=== PATIENT | female | born 1955 | race Caucasian/White ===

== ENCOUNTER 2023-11-26 21:55 | Inpatient (IN) | payer MEDICARE, OTHER ==
[~2023-11-26] VITALS: Ht 152.4 cm; Wt 36.3 kg
[~2023-11-26 21:55] MED LIST: ATOR10TA PO; HYDR-3974 PO; LISI10TA PO; METF-441 PO; METO25TA20 PO
[2023-11-26] MEDS: IV NS 0.9% 1,000 ML BAG IV ONE (22:00)
[2023-11-26] MEDS ORDERED: ACETAMINOPHEN 650 MG/SUPP.RECT RC ONE (22:07)
[2023-11-26 22:17] LABS: BASOPHILS # (AUTO) 0.1 K/uL (0.0-0.2); BASOPHILS % (AUTO) 0.5 % (0.0-2.0); EOSINOPHILS % (AUTO) 0.2 % (0.0-6.0); HEMATOCRIT 42 % (33-45); HEMOGLOBIN 13.8 g/dL (11.5-14.8); LYMPHOCYTES # (AUTO) 1.3 K/uL (0.8-4.8); LYMPHOCYTES % (AUTO) 8.8 % (20.0-44.0); MEAN CORPUSCULAR HEMOGLOBIN 32 PG (26.0-33.0); MEAN CORPUSCULAR HGB CONC 33 g/dl (31.0-36.0); MEAN CORPUSCULAR VOLUME 97 fL (82-100); MONOCYTES # (AUTO) 0.8 K/uL (0.1-1.30); NEUTROPHILS % (AUTO) 85.5 % (43.0-81.0); PLATELET COUNT (AUTO) 352 K/uL (150-450); RED BLOOD CELL COUNT(AUTO) 4.37 MIL/uL (4.0-5.2); RED CELL DISTRIBUTION WIDTH 16.3 % (11.5-15.0); WHITE BLOOD COUNT (AUTO) 15.2 K/uL (4.3-11.0)
[2023-11-26 22:24] LABS: CARBON DIOXIDE 26 mmol/L (21-32); CHLORIDE 99 mmol/L (98-107); GLUCOSE 268 mg/dL (74-106); POTASSIUM 4.2 mmol/L (3.5-5.1); SODIUM SERUM 142 mmol/L (136-145); UREA NITROGEN, BLOOD 30 mg/dL (7-18)
[2023-11-26 22:29] LABS: ALBUMIN 2.8 g/dL (3.4-5.0); BILIRUBIN,DIRECT 0.1 mg/dL (0.0-0.2); BILIRUBIN,TOTAL 0.3 mg/dL (0.2-1.0); CALCIUM, SERUM 10.6 mg/dL (8.5-10.1); TOTAL PROTEIN, SERUM 7.3 g/dL (6.4-8.2)
[2023-11-26] MEDS: ACETAMINOPHEN 650 MG/SUPP.RECT RC ONE (22:30)
[2023-11-26 22:31] LABS: INR 1.07 (0.91-1.10); PARTIAL THROMBOPLASTIN TIME 24.9 SEC (24.3-34.3); PROTHROMBIN TIME 11.3 SECS (9.2-11.1)
[2023-11-26 22:36] LABS: LACTIC ACID 9.1 mmol/L (0.4-2.0)
[2023-11-26 22:42] LABS: ABG OXYGEN SATURATION 98.1 % (92.0-98.5); ABG PCO2 37.4 mmHg (35.0-45.0); ABG PH 7.363 (7.350-7.450); ABG PO2 124.8 mmHg (75.0-100.0); COHb 0.3 % (0.5-1.5); MetHb 0.3 % (0.0-1.5); O2Hb 97.5 % (94.0-97.0); SITE, ABG Left Radial; VENT MODE, BG BIPAP 20/8 rate 22
[2023-11-26 22:58] LABS: ALANINE AMINOTRANSFERASE 10 U/L (12-78); ALKALINE PHOSPHATASE 68 U/L (46-116); ASPARTATE AMINOTRANSFERASE 16 U/L (15-37)
[2023-11-26] MEDS ORDERED: PIPERACI/TAZO 3.375GM/D5W 50ML PB IV ONE (23:36)
[2023-11-26] MEDS: PIPERACILLIN /TAZOBACTAM 3.375 G in IV D5W 50 ML IV ONE (23:42)
[2023-11-27] VITALS (30 sets, daily range): BP systolic 93–137; BP diastolic 55–81; TEMP 97.7–98.9; O2SAT 86–100
[2023-11-27] MEDS ORDERED: MAG HYDROX/AL HYDROX/SIMETH 30 ML UDC PO PRN
[2023-11-27] MEDS ORDERED: MAGNESIUM HYDROXIDE 30 ML UDC PO PRN
[2023-11-27] MEDS ORDERED: ZOLPIDEM TARTRATE 5 MG TABLET PO PRN
[2023-11-27] MEDS ORDERED: ONDANSETRON HCL/PF 4 MG/2 ML VIAL IVP PRN
[2023-11-27] MEDS ORDERED: Z GUARD REMEDY 4 OZ OINT TP PRN
[2023-11-27] MEDS: IV NS 0.9% 1,000 ML IV PRN (01:17)
[2023-11-27] MEDS: ENOXAPARIN SODIUM 40 MG/0.4 ML DISP.SYRIN SQ SCH (01:26)
[2023-11-27 04:45] LABS: BASOPHILS % (AUTO) 0.2 % (0.0-2.0); HEMATOCRIT 39 % (33-45); HEMOGLOBIN 12.6 g/dL (11.5-14.8); LYMPHOCYTES # (AUTO) 0.6 K/uL (0.8-4.8); LYMPHOCYTES % (AUTO) 9.6 % (20.0-44.0); MEAN CORPUSCULAR HEMOGLOBIN 32 PG (26.0-33.0); MEAN CORPUSCULAR HGB CONC 33 g/dl (31.0-36.0); MEAN CORPUSCULAR VOLUME 97 fL (82-100); MONOCYTES # (AUTO) 0.5 K/uL (0.1-1.30); MONOCYTES % (AUTO) 8.1 % (2.0-12.0); NEUTROPHILS # (AUTO) 4.9 K/uL (1.8-8.9); NEUTROPHILS % (AUTO) 82.1 % (43.0-81.0); PLATELET COUNT (AUTO) 193 K/uL (150-450); RED CELL DISTRIBUTION WIDTH 16.2 % (11.5-15.0)
[2023-11-27 05:14] LABS: ALBUMIN 2.1 g/dL (3.4-5.0); BILIRUBIN,DIRECT 0.1 mg/dL (0.0-0.2); BILIRUBIN,TOTAL 0.3 mg/dL (0.2-1.0); CALCIUM, SERUM 9.4 mg/dL (8.5-10.1); CREATININE 0.7 mg/dL (0.6-1.3); MAGNESIUM 1.3 mg/dL (1.8-2.4); PHOSPHORUS 3.2 mg/dL (2.5-4.9); POTASSIUM 3.5 mmol/L (3.5-5.1); TOTAL PROTEIN, SERUM 5.9 g/dL (6.4-8.2)
[2023-11-27 05:18] LABS: LACTIC ACID 5.7 mmol/L (0.4-2.0); THYROID STIMULATING HORMONE 0.37 uIU/mL (0.358-3.74)
[2023-11-27] MEDS: PANTOPRAZOLE 40 MG VIAL IV SCH (08:23)
[2023-11-27] MEDS: Magnesium 1GM/D5W 100ML PREMIX 100 ML IV SCH (08:23)
[2023-11-27] MEDS: PIPERACILLIN /TAZOBACTAM 3.375 G in IV D5W 100 ML IV SCH (08:23)
[2023-11-27] MEDS ORDERED: VALB80CA PO (08:24)
[2023-11-27] MEDS ORDERED: ACET-2030 PO (08:24)
[2023-11-27] MEDS ORDERED: MAGN400T30 PO (08:24)
[2023-11-27] MEDS ORDERED: DIVA125C5 PO (08:24)
[2023-11-27] MEDS ORDERED: METO25TA20 PO (08:24)
[2023-11-27] MEDS ORDERED: BUSP10TA35 PO (08:24)
[2023-11-27] MEDS ORDERED: LINA5TAB PO (08:24)
[2023-11-27] MEDS ORDERED: MAGN400O6 PO (08:24)
[2023-11-27] MEDS ORDERED: ACET-868 PO ×2 (08:24)
[2023-11-27] MEDS ORDERED: CYAN500T9 PO (08:24)
[2023-11-27] MEDS ORDERED: MULT-24 PO (08:24)
[2023-11-27] MEDS ORDERED: FAMO20TA80 PO (08:24)
[2023-11-27] MEDS ORDERED: OLAN2.5T3 PO (08:24)
[2023-11-27] MEDS ORDERED: LACT10SO58 PO (08:24)
[2023-11-27] MEDS ORDERED: METF850T PO (08:24)
[2023-11-27] MEDS ORDERED: ZINC454O5 TP (08:24)
[2023-11-27] MEDS ORDERED: TRAZ-182 PO (08:24)
[2023-11-27] MEDS ORDERED: NA P133E RC (08:24)
[2023-11-27] MEDS ORDERED: BISA10SU11 RC (08:24)
[2023-11-27] MEDS ORDERED: LORA-258 PO (08:24)
[2023-11-27] MEDS ORDERED: NA PHOS,M-B/NA PHOS,DI-BA 1 EA ENEMA RC PRN (11:00)
[2023-11-27] MEDS ORDERED: DEXTROSE 50%-WATER 50 ML DISP.SYRIN IV PRN (11:00)
[2023-11-27] MEDS ORDERED: ALBUTEROL FS 2.5 MG/3 ML VIAL.NEB NEB PRN (11:00)
[2023-11-27] MEDS ORDERED: ACETAMINOPHEN 325 MG TABLET PO PRN ×3 (11:00)
[2023-11-27] MEDS ORDERED: BISACODYL SUPP (10 MG) 10 MG/SUPP.RECT SUPP.RECT RC PRN (11:00)
[2023-11-27] MEDS ORDERED: IPRATROPIUM NEB FS 0.5 MG/2.5 ML AMPUL.NEB NEB PRN (11:00)
[2023-11-27] MEDS ORDERED: [UNRECOGNIZED DRUG - OTHER] XX SCH (11:00)
[2023-11-27] MEDS: BLOOD SUGAR DIAGNOSTIC 1 EACH STRIP IN SCH (11:42)
[2023-11-27] MEDS: PERMETHRIN 5% CRM 60 GM TUBE TP ONE (14:54)
[2023-11-27 16:09] LABS: APPEARANCE,URINE SLIGHTLY CLOUDY (CLEAR); BILIRUBIN,URINE NEGATIVE (NEGATIVE); BLOOD, URINE 3+ Ery/uL (NEGATIVE); COLOR,URINE YELLOW (YELLOW); KETONES,URINE 1+ mg/dL (NEGATIVE); LEUKOCYTE ESTERASE ,URINE NEGATIVE (NEGATIVE); NITRITE, URINE NEGATIVE (NEGATIVE); PH,URINE 5.5 (5.0-8.0); PROTEIN,URINE 1+ mg/dl (NEGATIVE); UGLUCOSE NEGATIVE (NEGATIVE); UROBILINOGEN,URINE 0.2 EU/dL (0.2)
[2023-11-27] MEDS: busPIRone 5 MG TABLET PO SCH (16:28)
[2023-11-27] MEDS: MAGNESIUM OXIDE 400 MG TABLET PO SCH (16:28)
[2023-11-27] MEDS: DIVALPROEX SODIUM 125 MG CAP.SPRINK PO SCH (16:28)
[2023-11-27] MEDS: LACTULOSE 10 G/15 ML UDC (PYXIS) PO SCH (16:28)
[2023-11-27 17:08] LABS: RBC,URINE 51-80 /HPF (0-2)
[2023-11-27 17:11] LABS: ADD URINE CULTURE NO; BACTERIA,URINE RARE /HPF (None Seen); HYALINE CASTS, URINE Few /LPF (None Seen); WBC,URINE 0-2 /HPF (0-3)
[2023-11-27 17:12] LABS: URIC ACID CRYSTALS,URINE Moderate /HPF (None Seen)
[2023-11-27] MEDS: INSULIN REGULAR, HUMAN 100 UNIT/ML 3 ML VIAL SQ PRN (17:21)
[2023-11-27] MEDS: METOPROLOL TARTRATE 25 MG TABLET PO SCH (21:00)
[2023-11-27] MEDS: ZINC OXIDE 56.7 GM TUBE TP SCH (21:17)
[2023-11-27] MEDS: OLANZAPINE 2.5 MG TABLET PO SCH (22:00)
[2023-11-28] VITALS (20 sets, daily range): BP systolic 100–153; BP diastolic 56–109; TEMP 97.7–100.5; O2SAT 89–99
[2023-11-28 05:29] LABS: CREATININE 0.5 mg/dL (0.6-1.3); MAGNESIUM 2.1 mg/dL (1.8-2.4); POTASSIUM 3.4 mmol/L (3.5-5.1)
[2023-11-28 05:32] LABS: BASOPHILS % (AUTO) 0.1 % (0.0-2.0); EOSINOPHILS % (AUTO) 0.1 % (0.0-6.0); HEMATOCRIT 35 % (33-45); HEMOGLOBIN 11.2 g/dL (11.5-14.8); LYMPHOCYTES # (AUTO) 1.3 K/uL (0.8-4.8); LYMPHOCYTES % (AUTO) 11.6 % (20.0-44.0); MEAN CORPUSCULAR HEMOGLOBIN 32 PG (26.0-33.0); MEAN CORPUSCULAR HGB CONC 33 g/dl (31.0-36.0); MEAN CORPUSCULAR VOLUME 99 fL (82-100); MONOCYTES # (AUTO) 0.6 K/uL (0.1-1.30); MONOCYTES % (AUTO) 5.6 % (2.0-12.0); NEUTROPHILS % (AUTO) 82.6 % (43.0-81.0); PLATELET COUNT (AUTO) 172 K/uL (150-450); RED CELL DISTRIBUTION WIDTH 16.6 % (11.5-15.0); WHITE BLOOD COUNT (AUTO) 10.9 K/uL (4.3-11.0)
[2023-11-28] MEDS: LINAGLIPTIN 5 MG TABLET PO SCH (08:11)
[2023-11-28] MEDS: MULTIVITAMINS,THERAGRAN 1 UDTAB TABLET PO SCH (08:11)
[2023-11-28] MEDS: CYANOCOBALAMIN 500 MCG TABLET PO SCH (08:11)
[2023-11-28] MEDS: POTASSIUM CL. PREMIX PERIPHER. 50 ML IV SCH (10:00)
[2023-11-28] MEDS: ACETAMINOPHEN 650 MG/SUPP.RECT RC PRN (10:40)
[2023-11-29] VITALS (13 sets, daily range): BP systolic 132–157; BP diastolic 77–96; TEMP 97.3–98.6; O2SAT 97–100
[2023-11-29] MEDS ORDERED: KETOROLAC TROMETHAMINE INJ 30 MG/ML VIAL ONE (01:55)
[2023-11-29] MEDS: KETOROLAC TROMETHAMINE 15 MG/ML VIAL IV PRN (01:58)
[2023-11-29] MEDS ORDERED: LORAZEPAM 4 MG/ML VIAL IV PRN (05:30)
[2023-11-29] MEDS: LORAZEPAM INJ 2 MG/ML VIAL IV PRN (06:00)
[2023-11-29 10:12] LABS: FOLIC ACID 3.8 ng/mL (>3.0)
[2023-11-29 11:09] LABS: BASOPHILS # (AUTO) 0.1 K/uL (0.0-0.2); BASOPHILS % (AUTO) 1.1 % (0.0-2.0); EOSINOPHILS % (AUTO) 0.4 % (0.0-6.0); HEMATOCRIT 32 % (33-45); HEMOGLOBIN 10.5 g/dL (11.5-14.8); LYMPHOCYTES # (AUTO) 1.1 K/uL (0.8-4.8); LYMPHOCYTES % (AUTO) 12.7 % (20.0-44.0); MEAN CORPUSCULAR HEMOGLOBIN 32 PG (26.0-33.0); MEAN CORPUSCULAR HGB CONC 33 g/dl (31.0-36.0); MEAN CORPUSCULAR VOLUME 96 fL (82-100); MONOCYTES # (AUTO) 0.5 K/uL (0.1-1.30); MONOCYTES % (AUTO) 5.7 % (2.0-12.0); NEUTROPHILS # (AUTO) 7.1 K/uL (1.8-8.9); NEUTROPHILS % (AUTO) 80.1 % (43.0-81.0); PLATELET COUNT (AUTO) 198 K/uL (150-450); RED BLOOD CELL COUNT(AUTO) 3.28 MIL/uL (4.0-5.2); RED CELL DISTRIBUTION WIDTH 16.2 % (11.5-15.0); WHITE BLOOD COUNT (AUTO) 8.9 K/uL (4.3-11.0)
[2023-11-29] MEDS: VALPROATE 250 MG in IV D5W 100 ML IV SCH (16:34)
[2023-11-30] VITALS: BP_SYST 133; BP_SYST 153; BP_DIAS 74; BP_DIAS 85; TEMP 97.3; TEMP 98.4; O2SAT 100
[2023-11-30 04:00] VITALS: BP 153/88; TEMP 98.9; O2SAT 98
[2023-11-30 08:00] VITALS: BP 155/116; TEMP 99.7; O2SAT 99
[2023-11-30 08:08] LABS: CALCIUM, SERUM 8.6 mg/dL (8.5-10.1); CREATININE 0.4 mg/dL (0.6-1.3); MAGNESIUM 1.5 mg/dL (1.8-2.4); PHOSPHORUS 2.4 mg/dL (2.5-4.9); POTASSIUM 3.2 mmol/L (3.5-5.1)
[2023-11-30] MEDS: hydrALAZINE HCL IV 20 MG VIAL IV PRN (08:34)
[2023-11-30] MEDS: POTASSIUM CL. PREMIX PERIPHER. 50 ML IV SCH (09:49)
[2023-11-30] MEDS: Sodium Phosphate 15 MMOL in IV NS 0.9% 245 ML IV ONE (15:55)
[2023-11-30 16:00] VITALS: BP 132/76; TEMP 99.7; O2SAT 99
[2023-11-30 16:03] LABS: BASOPHILS % (AUTO) 0.3 % (0.0-2.0); EOSINOPHILS % (AUTO) 0.7 % (0.0-6.0); HEMATOCRIT 32 % (33-45); HEMOGLOBIN 10.6 g/dL (11.5-14.8); LYMPHOCYTES # (AUTO) 1.5 K/uL (0.8-4.8); LYMPHOCYTES % (AUTO) 21.5 % (20.0-44.0); MEAN CORPUSCULAR HEMOGLOBIN 32 PG (26.0-33.0); MEAN CORPUSCULAR HGB CONC 34 g/dl (31.0-36.0); MEAN CORPUSCULAR VOLUME 96 fL (82-100); MONOCYTES # (AUTO) 0.6 K/uL (0.1-1.30); MONOCYTES % (AUTO) 9.1 % (2.0-12.0); NEUTROPHILS # (AUTO) 4.7 K/uL (1.8-8.9); NEUTROPHILS % (AUTO) 68.4 % (43.0-81.0); PLATELET COUNT (AUTO) 191 K/uL (150-450); RED BLOOD CELL COUNT(AUTO) 3.32 MIL/uL (4.0-5.2); RED CELL DISTRIBUTION WIDTH 15.8 % (11.5-15.0); WHITE BLOOD COUNT (AUTO) 6.9 K/uL (4.3-11.0)
[2023-11-30 19:31] VITALS: O2SAT 99
[2023-12-01] VITALS: BP 133/85; TEMP 97.3; O2SAT 99
[2023-12-01] MEDS: IV D5/0.45 NACL 1,000 ML IV ONE (00:42)
[2023-12-01 07:27] LABS: BASOPHILS % (AUTO) 0.4 % (0.0-2.0); EOSINOPHILS # (AUTO) 0.2 K/uL (0.0-0.7); EOSINOPHILS % (AUTO) 2.4 % (0.0-6.0); HEMATOCRIT 33 % (33-45); HEMOGLOBIN 11.1 g/dL (11.5-14.8); LYMPHOCYTES % (AUTO) 15.8 % (20.0-44.0); MEAN CORPUSCULAR HEMOGLOBIN 32 PG (26.0-33.0); MEAN CORPUSCULAR HGB CONC 33 g/dl (31.0-36.0); MEAN CORPUSCULAR VOLUME 96 fL (82-100); MONOCYTES # (AUTO) 0.5 K/uL (0.1-1.30); NEUTROPHILS # (AUTO) 4.6 K/uL (1.8-8.9); NEUTROPHILS % (AUTO) 73.4 % (43.0-81.0); PLATELET COUNT (AUTO) 213 K/uL (150-450); RED BLOOD CELL COUNT(AUTO) 3.45 MIL/uL (4.0-5.2); RED CELL DISTRIBUTION WIDTH 15.8 % (11.5-15.0); WHITE BLOOD COUNT (AUTO) 6.3 K/uL (4.3-11.0)
[2023-12-01 07:47] LABS: CALCIUM, SERUM 8.7 mg/dL (8.5-10.1); CREATININE 0.4 mg/dL (0.6-1.3); MAGNESIUM 1.2 mg/dL (1.8-2.4); PHOSPHORUS 2.8 mg/dL (2.5-4.9); POTASSIUM 2.9 mmol/L (3.5-5.1)
[2023-12-01 08:00] VITALS: BP 153/90; TEMP 98.1; O2SAT 98
[2023-12-01 10:15] LABS: EOSINOPHILS % (MANUAL) 1 % (0-4); LYMPHOCYTES % (MANUAL) 14 % (16-48); MONOCYTES % (MANUAL) 11 % (0-11.0); NEUTROPHILS % (MANUAL) 74 (42-76)
[2023-12-01 10:18] LABS: OVALOCYTES 1+; PLATELET ESTIMATE ADEQUATE
[2023-12-01] MEDS: POTASSIUM CL. PREMIX PERIPHER. 50 ML IV SCH (10:56)
[2023-12-01] MEDS: Magnesium 1GM/D5W 100ML PREMIX 100 ML IV SCH (11:44)
[2023-12-01 16:00] VITALS: BP 172/98; TEMP 97.9; O2SAT 99
[2023-12-01 16:16] VITALS: BP 167/96
== END 2023-12-01 17:15 | disposition hospice, home (50) | DRG 871 ==
LOC: ER 22:15 → ICU 22:59 → TELE1 11-28 13:14 → MEDSG1 11-30 08:27
PROVIDERS: ADMIT Nurse Practitioner Family; ATTEND Student in an Organized Health Care Education/Training Program
PROC: 5A09357 Assistance with Respiratory Ventilation, Less than 24 Consecutive Hours, Continuous Positive Airway Pressure (ICD-10-PCS; principal; 2023-11-26)
PROC: 5A09357 Assistance with Respiratory Ventilation, Less than 24 Consecutive Hours, Continuous Positive Airway Pressure (ICD-10-PCS; 2023-11-27)
DX: A41.9 Sepsis, unspecified organism (principal); E43 Unspecified severe protein-calorie malnutrition; G93.41 Metabolic encephalopathy; J15.9 Unspecified bacterial pneumonia; J96.01 Acute respiratory failure with hypoxia; J69.0 Pneumonitis due to inhalation of food and vomit; J15.69 Pneumonia due to other Gram-negative bacteria; E87.20 Acidosis, unspecified; R64 Cachexia; N17.9 Acute kidney failure, unspecified; F02.82 Dementia in other diseases classified elsewhere, unspecified severity, with psychotic disturbance; Z68.1 Body mass index [BMI] 19.9 or less, adult; E78.5 Hyperlipidemia, unspecified; E83.52 Hypercalcemia; E86.0 Dehydration; E87.6 Hypokalemia; E88.09 Other disorders of plasma-protein metabolism, not elsewhere classified; F20.9 Schizophrenia, unspecified; J45.909 Unspecified asthma, uncomplicated; E80.6 Other disorders of bilirubin metabolism; Z51.5 Encounter for palliative care; G30.9 Alzheimer's disease, unspecified; I10 Essential (primary) hypertension; Z20.822 Contact with and (suspected) exposure to COVID-19; R21 Rash and other nonspecific skin eruption; E11.9 Type 2 diabetes mellitus without complications; R13.10 Dysphagia, unspecified
CPT/HCPCS: 36415; 36600; 70450-TC; 71045-TC; 71250-TC; 80048-TC; 80076-TC; 81001; 82607-TC; 82803-TC; 82962-TC; 83605-TC; 83735-TC; 83921; 84100-TC; 84443-TC; 84484-TC; 85025-TC; 85730-TC; 87040-TC; 87081-TC; 87086-TC; 92526; 92611-TC; 94760-TC; 94762-TC; 94799-TC; 99082-TC; A4223; A9563; G0378; J0360; J1650; J1815; J1885; J2060; J2470; J2543; J3475; J3480; J3490; J7030; J7050; J7060

== ENCOUNTER 2024-02-14 16:33 | Inpatient (IN) | payer MEDICARE, OTHER ==
[~2024-02-14] VITALS: Ht 152.4 cm; Wt 35.4 kg
[~2024-02-14 16:33] MED LIST changes: +ACET-2030 PO; +ACET-868 PO; -ATOR10TA PO; +BISA10SU11 RC; +BUSP10TA35 PO; +CYAN500T9 PO; +DIVA125C5 PO; +FAMO20TA80 PO; -HYDR-3974 PO; +IVER3TAB2 PO; +LACT10SO58 PO; +LINA5TAB PO; -LISI10TA PO; +LORA-258 PO; +MAGN400O6 PO; +MAGN400T30 PO; -METF-441 PO; +METF850T PO; +MULT-24 PO; +NA P133E RC; +OLAN2.5T3 PO; +TRAZ-182 PO; +VALB80CA PO; +ZINC454O5 TP
[2024-02-14] MEDS: IV NS 0.9% 1,000 ML BAG IV ONE (17:00)
[2024-02-14 17:07] LABS: BASOPHILS # (AUTO) 0.1 K/uL (0.0-0.2); BASOPHILS % (AUTO) 0.4 % (0.0-2.0); EOSINOPHILS % (AUTO) 0.2 % (0.0-6.0); HEMATOCRIT 42 % (33-45); HEMOGLOBIN 13.6 g/dL (11.5-14.8); LYMPHOCYTES # (AUTO) 1.8 K/uL (0.8-4.8); LYMPHOCYTES % (AUTO) 10.1 % (20.0-44.0); MEAN CORPUSCULAR HEMOGLOBIN 32 PG (26.0-33.0); MEAN CORPUSCULAR HGB CONC 32 g/dl (31.0-36.0); MEAN CORPUSCULAR VOLUME 101 fL (82-100); MONOCYTES # (AUTO) 0.9 K/uL (0.1-1.30); MONOCYTES % (AUTO) 5.1 % (2.0-12.0); NEUTROPHILS % (AUTO) 84.2 % (43.0-81.0); PLATELET COUNT (AUTO) 459 K/uL (150-450); RED BLOOD CELL COUNT(AUTO) 4.21 MIL/uL (4.0-5.2); RED CELL DISTRIBUTION WIDTH 15.9 % (11.5-15.0); WHITE BLOOD COUNT (AUTO) 17.9 K/uL (4.3-11.0)
[2024-02-14] MEDS ORDERED: ACETAMINOPHEN 650 MG/SUPP.RECT RC ONE (17:15)
[2024-02-14] MEDS: ACETAMINOPHEN 650 MG/SUPP.RECT RC ONE (17:17)
[2024-02-14 17:22] LABS: INR 1.07 (0.91-1.10)
[2024-02-14 17:25] LABS: ALANINE AMINOTRANSFERASE 44 U/L (12-78); ALBUMIN 2.9 g/dL (3.4-5.0); ALKALINE PHOSPHATASE 71 U/L (46-116); ASPARTATE AMINOTRANSFERASE 53 U/L (15-37); BILIRUBIN,TOTAL 0.3 mg/dL (0.2-1.0); CALCIUM, SERUM 11.3 mg/dL (8.5-10.1); CARBON DIOXIDE 31 mmol/L (21-32); CHLORIDE 123 mmol/L (98-107); CREATININE 1.1 mg/dL (0.6-1.3); GLUCOSE 176 mg/dL (74-106); POTASSIUM 3.9 mmol/L (3.5-5.1); TOTAL PROTEIN, SERUM 7.9 g/dL (6.4-8.2); UREA NITROGEN, BLOOD 49 mg/dL (7-18)
[2024-02-14 17:27] LABS: SODIUM SERUM 162 mmol/L (136-145)
[2024-02-14 17:31] LABS: LACTIC ACID 2.9 mmol/L (0.4-2.0)
[2024-02-14] MEDS: PIPERACILLIN /TAZOBACTAM 3.375 G in IV D5W 50 ML IV ONE (18:00)
[2024-02-14] MEDS ORDERED: ACET650S11 RC (18:10)
[2024-02-14] MEDS ORDERED: DEXT38GE12 PO (18:10)
[2024-02-14] MEDS ORDERED: MEGE400O5 PO (18:10)
[2024-02-14] MEDS ORDERED: CALC-101 PO (18:10)
[2024-02-14] MEDS ORDERED: FOLI0.4T6 PO (18:10)
[2024-02-14] MEDS ORDERED: GLUC1KIT IJ (18:10)
[2024-02-14 18:24] LABS: BAND % (MANUAL) 1 % (0.0-5.0); LYMPHOCYTES % (MANUAL) 15 % (16-48); MONOCYTES % (MANUAL) 7 % (0-11.0); NEUTROPHILS % (MANUAL) 77 (42-76); PLATELET ESTIMATE INCREASED
[2024-02-14 18:51] LABS: APPEARANCE,URINE Clear (CLEAR); BILIRUBIN,URINE SMALL (NEGATIVE); BLOOD, URINE Negative Ery/uL (NEGATIVE); COLOR,URINE YELLOW (YELLOW); KETONES,URINE Trace mg/dL (NEGATIVE); LEUKOCYTE ESTERASE ,URINE Negative (NEGATIVE); NITRITE, URINE Negative (NEGATIVE); PROTEIN,URINE 100 mg/dl (NEGATIVE); UGLUCOSE Negative (NEGATIVE); UROBILINOGEN,URINE 0.2 EU/dL (0.2)
[2024-02-14 19:37] LABS: ADD URINE CULTURE NO; BACTERIA,URINE Few /HPF (None Seen); SQUAMOUS EPITHELIAL CELL,UR Few /HPF (None Seen)
[2024-02-14] MEDS ORDERED: ONDANSETRON HCL/PF 4 MG/2 ML VIAL IVP PRN (20:00)
[2024-02-14] MEDS ORDERED: Z GUARD REMEDY 4 OZ OINT TP PRN (20:00)
[2024-02-14 20:25] VITALS: BP 139/86; TEMP 98.1; O2SAT 100
[2024-02-14 21:11] VITALS: O2SAT 96
[2024-02-14] MEDS: IV D5W 1,000 ML IV PRN (21:12)
[2024-02-15] VITALS: BP 125/58; TEMP 98.7; O2SAT 100
[2024-02-15] MEDS: PIPERACILLIN /TAZOBACTAM 3.375 G in IV D5W 100 ML IV SCH (02:13)
[2024-02-15] MEDS ORDERED: KETOROLAC TROMETHAMINE 15 MG/ML VIAL IV PRN (03:30)
[2024-02-15 04:00] VITALS: BP 145/75; TEMP 98.2; O2SAT 100
[2024-02-15] MEDS: ACETAMINOPHEN 650 MG/SUPP.RECT RC PRN (05:07)
[2024-02-15 06:25] LABS: BASOPHILS % (AUTO) 0.2 % (0.0-2.0); EOSINOPHILS % (AUTO) 0.2 % (0.0-6.0); HEMATOCRIT 36 % (33-45); HEMOGLOBIN 11.1 g/dL (11.5-14.8); LYMPHOCYTES # (AUTO) 1.8 K/uL (0.8-4.8); MEAN CORPUSCULAR HEMOGLOBIN 32 PG (26.0-33.0); MEAN CORPUSCULAR HGB CONC 31 g/dl (31.0-36.0); MEAN CORPUSCULAR VOLUME 102 fL (82-100); MONOCYTES # (AUTO) 0.9 K/uL (0.1-1.30); MONOCYTES % (AUTO) 5.4 % (2.0-12.0); NEUTROPHILS # (AUTO) 14.8 K/uL (1.8-8.9); NEUTROPHILS % (AUTO) 84.2 % (43.0-81.0); PLATELET COUNT (AUTO) 253 K/uL (150-450); RED CELL DISTRIBUTION WIDTH 15.8 % (11.5-15.0); WHITE BLOOD COUNT (AUTO) 17.6 K/uL (4.3-11.0)
[2024-02-15 06:54] LABS: ALBUMIN 2.1 g/dL (3.4-5.0); BILIRUBIN,DIRECT 0.1 mg/dL (0.0-0.2); BILIRUBIN,TOTAL 0.4 mg/dL (0.2-1.0); CALCIUM, SERUM 9.8 mg/dL (8.5-10.1); CREATININE 0.7 mg/dL (0.6-1.3); MAGNESIUM 1.8 mg/dL (1.8-2.4); PHOSPHORUS 2.1 mg/dL (2.5-4.9); TOTAL PROTEIN, SERUM 6.4 g/dL (6.4-8.2)
[2024-02-15 06:59] LABS: LACTIC ACID 1.6 mmol/L (0.4-2.0)
[2024-02-15 08:00] VITALS: BP 154/92; TEMP 97.8; O2SAT 100
[2024-02-15] MEDS: PANTOPRAZOLE 40 MG VIAL IV SCH (08:39)
[2024-02-15] MEDS: CEFEPIME 2 GM in IV D5W 100 ML IV SCH (10:10)
[2024-02-15] MEDS: ENOXAPARIN SODIUM 40 MG/0.4 ML DISP.SYRIN SQ SCH (10:47)
[2024-02-15] MEDS: VANCOMYCIN 750 MG in IV D5W 250 ML IV ONE (11:00)
[2024-02-15] MEDS: POTASSIUM CL. PREMIX PERIPHER. 50 ML IV SCH (11:55)
[2024-02-15 12:00] VITALS: BP 154/87; TEMP 97.5; O2SAT 100
[2024-02-15 14:53] LABS: HIV-1 p24 ANTIGEN NON REACTIVE (NONREACTIVE); HIV-1/2 ANTIBODY NON REACTIVE (NONREACTIVE)
[2024-02-15 16:00] VITALS: BP 147/89; TEMP 97.7; O2SAT 100
[2024-02-15] MEDS ORDERED: Sodium Phosphate 15 MMOL in IV NS 0.9% 245 ML IV SCH (16:30)
[2024-02-15] MEDS: Sodium Phosphate 15 MMOL in IV NS 0.9% 245 ML IV SCH (17:25)
[2024-02-15 20:00] VITALS: BP 141/92; TEMP 97.8; O2SAT 99
[2024-02-15] MEDS: VANCOMYCIN 500 MG in IV D5W 100ml IV SCH (23:02)
[2024-02-16] VITALS: BP 133/76; TEMP 98.3; O2SAT 98
[2024-02-16 04:00] VITALS: BP 162/59; TEMP 97.8; O2SAT 98
[2024-02-16 07:15] LABS: BASOPHILS % (AUTO) 0.3 % (0.0-2.0); EOSINOPHILS # (AUTO) 0.6 K/uL (0.0-0.7); EOSINOPHILS % (AUTO) 3.9 % (0.0-6.0); HEMATOCRIT 33 % (33-45); HEMOGLOBIN 10.4 g/dL (11.5-14.8); LYMPHOCYTES # (AUTO) 2.1 K/uL (0.8-4.8); LYMPHOCYTES % (AUTO) 13.4 % (20.0-44.0); MEAN CORPUSCULAR HEMOGLOBIN 32 PG (26.0-33.0); MEAN CORPUSCULAR HGB CONC 32 g/dl (31.0-36.0); MEAN CORPUSCULAR VOLUME 101 fL (82-100); MONOCYTES # (AUTO) 0.6 K/uL (0.1-1.30); MONOCYTES % (AUTO) 3.6 % (2.0-12.0); NEUTROPHILS # (AUTO) 12.3 K/uL (1.8-8.9); NEUTROPHILS % (AUTO) 78.8 % (43.0-81.0); PLATELET COUNT (AUTO) 219 K/uL (150-450); RED BLOOD CELL COUNT(AUTO) 3.28 MIL/uL (4.0-5.2); RED CELL DISTRIBUTION WIDTH 15.2 % (11.5-15.0); WHITE BLOOD COUNT (AUTO) 15.6 K/uL (4.3-11.0)
[2024-02-16 07:59] LABS: CALCIUM, SERUM 9.9 mg/dL (8.5-10.1); CREATININE 0.4 mg/dL (0.6-1.3); MAGNESIUM 1.4 mg/dL (1.8-2.4); PHOSPHORUS 2.5 mg/dL (2.5-4.9); POTASSIUM 3.5 mmol/L (3.5-5.1)
[2024-02-16 08:00] VITALS: BP 133/86; TEMP 97.9; O2SAT 97
[2024-02-16] MEDS: Magnesium 1GM/D5W 100ML PREMIX 100 ML IV SCH (10:53)
[2024-02-16 12:00] VITALS: BP 138/76; TEMP 97.9; O2SAT 95
[2024-02-16 16:00] VITALS: BP 151/85; TEMP 96.9; O2SAT 99
[2024-02-16 20:00] VITALS: BP 152/79; TEMP 97.5; O2SAT 99
[2024-02-17] VITALS (7 sets, daily range): BP systolic 151–176; BP diastolic 77–98; TEMP 97.5–98.6; O2SAT 96–100
[2024-02-17 06:22] LABS: BASOPHILS % (AUTO) 0.3 % (0.0-2.0); EOSINOPHILS # (AUTO) 0.5 K/uL (0.0-0.7); EOSINOPHILS % (AUTO) 3.8 % (0.0-6.0); HEMATOCRIT 31 % (33-45); HEMOGLOBIN 10.1 g/dL (11.5-14.8); LYMPHOCYTES # (AUTO) 1.6 K/uL (0.8-4.8); LYMPHOCYTES % (AUTO) 12.6 % (20.0-44.0); MEAN CORPUSCULAR HEMOGLOBIN 32 PG (26.0-33.0); MEAN CORPUSCULAR HGB CONC 33 g/dl (31.0-36.0); MEAN CORPUSCULAR VOLUME 98 fL (82-100); MONOCYTES # (AUTO) 0.5 K/uL (0.1-1.30); MONOCYTES % (AUTO) 3.6 % (2.0-12.0); NEUTROPHILS # (AUTO) 10.2 K/uL (1.8-8.9); NEUTROPHILS % (AUTO) 79.7 % (43.0-81.0); PLATELET COUNT (AUTO) 214 K/uL (150-450); RED BLOOD CELL COUNT(AUTO) 3.16 MIL/uL (4.0-5.2); WHITE BLOOD COUNT (AUTO) 12.8 K/uL (4.3-11.0)
[2024-02-17 07:50] LABS: CALCIUM, SERUM 9.4 mg/dL (8.5-10.1); CREATININE 0.4 mg/dL (0.6-1.3); MAGNESIUM 2.3 mg/dL (1.8-2.4); PHOSPHORUS 2.7 mg/dL (2.5-4.9); POTASSIUM 4.2 mmol/L (3.5-5.1)
[2024-02-17] MEDS: KETOROLAC TROMETHAMINE 15 MG/ML VIAL IV PRN (08:14)
[2024-02-17] MEDS: OLANZAPINE 10 MG VIAL IM ONE (11:51)
[2024-02-17] MEDS: busPIRone 5 MG TABLET PO SCH (17:00)
[2024-02-17] MEDS: LACTULOSE 10 G/15 ML UDC (PYXIS) PO SCH (17:00)
[2024-02-17] MEDS: DIVALPROEX SODIUM 125 MG CAP.SPRINK PO SCH (17:00)
[2024-02-17] MEDS ORDERED: KETOROLAC TROMETHAMINE 15 MG/ML VIAL ONE (21:31)
[2024-02-18 00:48] VITALS: BP 182/94; TEMP 97.3; O2SAT 100
[2024-02-18] MEDS: hydrALAZINE HCL IV 20 MG VIAL IV ONE (01:21)
[2024-02-18 04:00] VITALS: BP 161/92; TEMP 97.7; O2SAT 100
[2024-02-18 07:17] LABS: CALCIUM, SERUM 9.3 mg/dL (8.5-10.1); CREATININE 0.4 mg/dL (0.6-1.3); MAGNESIUM 2.3 mg/dL (1.8-2.4); PHOSPHORUS 2.5 mg/dL (2.5-4.9); POTASSIUM 3.5 mmol/L (3.5-5.1)
[2024-02-18 08:00] VITALS: BP_SYST 157; BP_SYST 177; BP_DIAS 76; BP_DIAS 79; TEMP 97.5; O2SAT 100
[2024-02-18] MEDS: IV D5/0.45 NACL 1,000 ML IV PRN (10:20)
[2024-02-18 12:00] VITALS: BP 171/88; TEMP 97.3; O2SAT 100
[2024-02-18] MEDS: hydrALAZINE HCL IV 20 MG VIAL IV PRN (13:12)
[2024-02-18 15:45] LABS: BASOPHILS % (AUTO) 0.3 % (0.0-2.0); EOSINOPHILS # (AUTO) 0.4 K/uL (0.0-0.7); HEMATOCRIT 35 % (33-45); HEMOGLOBIN 11.6 g/dL (11.5-14.8); LYMPHOCYTES # (AUTO) 2.4 K/uL (0.8-4.8); LYMPHOCYTES % (AUTO) 23.6 % (20.0-44.0); MEAN CORPUSCULAR HEMOGLOBIN 32 PG (26.0-33.0); MEAN CORPUSCULAR HGB CONC 33 g/dl (31.0-36.0); MEAN CORPUSCULAR VOLUME 98 fL (82-100); MONOCYTES # (AUTO) 0.4 K/uL (0.1-1.30); MONOCYTES % (AUTO) 4.4 % (2.0-12.0); NEUTROPHILS # (AUTO) 6.8 K/uL (1.8-8.9); NEUTROPHILS % (AUTO) 67.7 % (43.0-81.0); PLATELET COUNT (AUTO) 234 K/uL (150-450); RED BLOOD CELL COUNT(AUTO) 3.58 MIL/uL (4.0-5.2); WHITE BLOOD COUNT (AUTO) 10.1 K/uL (4.3-11.0)
[2024-02-18 16:00] VITALS: BP 170/78; TEMP 97.7; O2SAT 100
[2024-02-18 18:00] VITALS: BP 170/78; TEMP 97.7; O2SAT 100
[2024-02-19] VITALS: BP 175/100; TEMP 97.2; O2SAT 100
[2024-02-19] MEDS: KETOROLAC TROMETHAMINE 15 MG/ML VIAL ONE (00:22)
[2024-02-19 08:00] VITALS: BP 175/89; TEMP 97.2; O2SAT 100
[2024-02-19 08:36] VITALS: O2SAT 100
[2024-02-19] MEDS ORDERED: KETOROLAC TROMETHAMINE INJ 30 MG/ML VIAL IV PRN (09:00)
[2024-02-19] MEDS: NITROGLYCERIN PACKET 1 GM PACKET TOP SCH (12:21)
[2024-02-19 12:34] LABS: BASOPHILS % (AUTO) 0.5 % (0.0-2.0); EOSINOPHILS # (AUTO) 0.3 K/uL (0.0-0.7); EOSINOPHILS % (AUTO) 3.2 % (0.0-6.0); HEMATOCRIT 33 % (33-45); HEMOGLOBIN 10.9 g/dL (11.5-14.8); LYMPHOCYTES # (AUTO) 1.4 K/uL (0.8-4.8); MEAN CORPUSCULAR HEMOGLOBIN 32 PG (26.0-33.0); MEAN CORPUSCULAR HGB CONC 33 g/dl (31.0-36.0); MEAN CORPUSCULAR VOLUME 96 fL (82-100); MONOCYTES # (AUTO) 0.3 K/uL (0.1-1.30); MONOCYTES % (AUTO) 3.5 % (2.0-12.0); NEUTROPHILS # (AUTO) 7.3 K/uL (1.8-8.9); NEUTROPHILS % (AUTO) 77.8 % (43.0-81.0); PLATELET COUNT (AUTO) 247 K/uL (150-450); RED BLOOD CELL COUNT(AUTO) 3.41 MIL/uL (4.0-5.2); RED CELL DISTRIBUTION WIDTH 14.9 % (11.5-15.0); WHITE BLOOD COUNT (AUTO) 9.4 K/uL (4.3-11.0)
[2024-02-19 12:53] LABS: CALCIUM, SERUM 9.2 mg/dL (8.5-10.1); CREATININE 0.4 mg/dL (0.6-1.3); POTASSIUM 3.6 mmol/L (3.5-5.1)
[2024-02-19 16:00] VITALS: BP 130/90; TEMP 98.5; O2SAT 97
[2024-02-20] VITALS: BP 154/100; TEMP 97.5; O2SAT 97
[2024-02-20 04:00] VITALS: BP 153/103; TEMP 98.2; O2SAT 98
[2024-02-20 07:36] LABS: CALCIUM, SERUM 9.8 mg/dL (8.5-10.1); CREATININE 0.4 mg/dL (0.6-1.3); POTASSIUM 3.7 mmol/L (3.5-5.1)
[2024-02-20 08:00] VITALS: BP 152/103; TEMP 97.5; O2SAT 99
[2024-02-20] MEDS: CLONIDINE HCL 0.1MG/24H PTWK 1 EA PATCH TD SCH (08:23)
[2024-02-20 16:00] VITALS: BP 143/82; TEMP 97; O2SAT 98
[2024-02-21] VITALS: BP 148/89; TEMP 98.2; O2SAT 98
[2024-02-21 08:00] VITALS: BP 147/103; TEMP 98.4; O2SAT 100
[2024-02-21 08:01] LABS: CALCIUM, SERUM 9.4 mg/dL (8.5-10.1); CREATININE 0.5 mg/dL (0.6-1.3); POTASSIUM 3.5 mmol/L (3.5-5.1)
[2024-02-21 16:00] VITALS: BP 156/83; TEMP 97.2; O2SAT 97
[2024-02-22] VITALS: BP 171/99; TEMP 98.8; O2SAT 97
[2024-02-22 04:00] VITALS: BP 154/92; TEMP 98.7; O2SAT 97
[2024-02-22 07:55] LABS: BASOPHILS % (AUTO) 0.1 % (0.0-2.0); EOSINOPHILS # (AUTO) 0.2 K/uL (0.0-0.7); EOSINOPHILS % (AUTO) 3.3 % (0.0-6.0); HEMATOCRIT 32 % (33-45); LYMPHOCYTES # (AUTO) 1.1 K/uL (0.8-4.8); LYMPHOCYTES % (AUTO) 19.2 % (20.0-44.0); MEAN CORPUSCULAR HEMOGLOBIN 33 PG (26.0-33.0); MEAN CORPUSCULAR HGB CONC 34 g/dl (31.0-36.0); MEAN CORPUSCULAR VOLUME 95 fL (82-100); MONOCYTES # (AUTO) 0.5 K/uL (0.1-1.30); NEUTROPHILS # (AUTO) 3.7 K/uL (1.8-8.9); NEUTROPHILS % (AUTO) 67.4 % (43.0-81.0); PLATELET COUNT (AUTO) 217 K/uL (150-450); RED BLOOD CELL COUNT(AUTO) 3.37 MIL/uL (4.0-5.2); RED CELL DISTRIBUTION WIDTH 15.1 % (11.5-15.0); WHITE BLOOD COUNT (AUTO) 5.5 K/uL (4.3-11.0)
[2024-02-22 08:25] LABS: CREATININE 0.5 mg/dL (0.6-1.3); MAGNESIUM 1.3 mg/dL (1.8-2.4); PHOSPHORUS 2.3 mg/dL (2.5-4.9); POTASSIUM 3.3 mmol/L (3.5-5.1)
[2024-02-22] MEDS: POTASSIUM CL. PREMIX PERIPHER. 50 ML IV SCH (10:25)
[2024-02-22] MEDS: Magnesium 1GM/D5W 100ML PREMIX 100 ML IV SCH (10:25)
[2024-02-22] MEDS: Sodium Phosphate 15 MMOL in IV NS 0.9% 245 ML IV SCH (16:19)
[2024-02-22 20:00] VITALS: BP 176/89; TEMP 97.5; O2SAT 99
[2024-02-22 21:37] VITALS: BP 113/95; O2SAT 95
[2024-02-23 04:00] VITALS: BP 132/77; TEMP 97.9; O2SAT 99
[2024-02-23 07:54] LABS: BASOPHILS % (AUTO) 0.3 % (0.0-2.0); EOSINOPHILS # (AUTO) 0.2 K/uL (0.0-0.7); EOSINOPHILS % (AUTO) 2.7 % (0.0-6.0); HEMATOCRIT 33 % (33-45); HEMOGLOBIN 10.9 g/dL (11.5-14.8); LYMPHOCYTES # (AUTO) 1.2 K/uL (0.8-4.8); LYMPHOCYTES % (AUTO) 20.8 % (20.0-44.0); MEAN CORPUSCULAR HEMOGLOBIN 32 PG (26.0-33.0); MEAN CORPUSCULAR HGB CONC 33 g/dl (31.0-36.0); MEAN CORPUSCULAR VOLUME 97 fL (82-100); MONOCYTES # (AUTO) 0.6 K/uL (0.1-1.30); NEUTROPHILS # (AUTO) 3.9 K/uL (1.8-8.9); NEUTROPHILS % (AUTO) 66.2 % (43.0-81.0); PLATELET COUNT (AUTO) 274 K/uL (150-450); RED BLOOD CELL COUNT(AUTO) 3.44 MIL/uL (4.0-5.2); RED CELL DISTRIBUTION WIDTH 14.9 % (11.5-15.0); WHITE BLOOD COUNT (AUTO) 5.8 K/uL (4.3-11.0)
[2024-02-23 08:04] LABS: CALCIUM, SERUM 8.8 mg/dL (8.5-10.1); CREATININE 0.4 mg/dL (0.6-1.3); INR 1.06 (0.91-1.10); MAGNESIUM 2.3 mg/dL (1.8-2.4); PARTIAL THROMBOPLASTIN TIME 24.8 SEC (24.3-34.3); PHOSPHORUS 2.9 mg/dL (2.5-4.9); POTASSIUM 3.4 mmol/L (3.5-5.1); PROTHROMBIN TIME 11.2 SECS (9.2-11.1)
[2024-02-23] MEDS: POTASSIUM CL. PREMIX PERIPHER. 50 ML IV SCH (12:35)
[2024-02-23 16:30] VITALS: O2SAT 99
[2024-02-23 20:00] VITALS: BP 190/96; TEMP 97.9; O2SAT 100
[2024-02-24 04:00] VITALS: BP 138/89; TEMP 98.5; O2SAT 94
[2024-02-24 05:08] VITALS: O2SAT 98
[2024-02-24 08:32] LABS: CALCIUM, SERUM 9.5 mg/dL (8.5-10.1); CREATININE 0.4 mg/dL (0.6-1.3); MAGNESIUM 1.9 mg/dL (1.8-2.4); PHOSPHORUS 2.6 mg/dL (2.5-4.9); POTASSIUM 3.6 mmol/L (3.5-5.1)
[2024-02-24 08:41] VITALS: O2SAT 98
[2024-02-24] MEDS: GLUCERNA 1.2 1,000 ML BOTTLE NG PRN (12:00)
[2024-02-24 15:41] LABS: BASOPHILS % (AUTO) 0.3 % (0.0-2.0); EOSINOPHILS # (AUTO) 0.1 K/uL (0.0-0.7); EOSINOPHILS % (AUTO) 1.2 % (0.0-6.0); HEMATOCRIT 28 % (33-45); HEMOGLOBIN 9.4 g/dL (11.5-14.8); LYMPHOCYTES # (AUTO) 1.4 K/uL (0.8-4.8); LYMPHOCYTES % (AUTO) 21.6 % (20.0-44.0); MEAN CORPUSCULAR HEMOGLOBIN 32 PG (26.0-33.0); MEAN CORPUSCULAR HGB CONC 34 g/dl (31.0-36.0); MEAN CORPUSCULAR VOLUME 94 fL (82-100); MONOCYTES # (AUTO) 0.5 K/uL (0.1-1.30); MONOCYTES % (AUTO) 8.2 % (2.0-12.0); NEUTROPHILS # (AUTO) 4.4 K/uL (1.8-8.9); NEUTROPHILS % (AUTO) 68.7 % (43.0-81.0); PLATELET COUNT (AUTO) 263 K/uL (150-450); RED BLOOD CELL COUNT(AUTO) 2.92 MIL/uL (4.0-5.2); RED CELL DISTRIBUTION WIDTH 15.4 % (11.5-15.0); WHITE BLOOD COUNT (AUTO) 6.4 K/uL (4.3-11.0)
[2024-02-24 17:15] VITALS: BP 140/80
== END 2024-02-24 18:24 | DRG 871 ==
LOC: ER 16:38 → MEDSG1 18:30 → TELE1 20:31 → MEDSG1 02-18 14:00
PROVIDERS: ADMIT Nurse Practitioner Family; ATTEND Student in an Organized Health Care Education/Training Program
PROC: 0DH63UZ Insertion of Feeding Device into Stomach, Percutaneous Approach (ICD-10-PCS; principal; 2024-02-23)
DX: A41.9 Sepsis, unspecified organism (principal); G93.41 Metabolic encephalopathy; J15.9 Unspecified bacterial pneumonia; J96.01 Acute respiratory failure with hypoxia; E44.0 Moderate protein-calorie malnutrition; F02.84 Dementia in other diseases classified elsewhere, unspecified severity, with anxiety; E87.0 Hyperosmolality and hypernatremia; E87.20 Acidosis, unspecified; N17.9 Acute kidney failure, unspecified; R47.01 Aphasia; F02.811 Dementia in other diseases classified elsewhere, unspecified severity, with agitation; F02.818 Dementia in other diseases classified elsewhere, unspecified severity, with other behavioral disturbance; E86.0 Dehydration; Z66 Do not resuscitate; K29.70 Gastritis, unspecified, without bleeding; G30.9 Alzheimer's disease, unspecified; Z87.440 Personal history of urinary (tract) infections; E11.42 Type 2 diabetes mellitus with diabetic polyneuropathy; Z91.018 Allergy to other foods; Z79.84 Long term (current) use of oral hypoglycemic drugs; Z79.899 Other long term (current) drug therapy; D64.9 Anemia, unspecified; E78.5 Hyperlipidemia, unspecified; D75.839 Thrombocytosis, unspecified; E83.39 Other disorders of phosphorus metabolism; E83.52 Hypercalcemia; E88.09 Other disorders of plasma-protein metabolism, not elsewhere classified; R62.7 Adult failure to thrive; F09 Unspecified mental disorder due to known physiological condition; F25.9 Schizoaffective disorder, unspecified; E86.1 Hypovolemia; E86.9 Volume depletion, unspecified; E87.6 Hypokalemia; I10 Essential (primary) hypertension; M89.8X9 Other specified disorders of bone, unspecified site; R13.10 Dysphagia, unspecified; Y95 Nosocomial condition
CPT/HCPCS: 36415; 43246; 71045-TC; 80048-TC; 80076-TC; 80202-TC; 81001; 82962-TC; 83605-TC; 83735-TC; 84100-TC; 84484-TC; 85025-TC; 85730-TC; 86803; 86850-TC; 87040-TC; 87081-TC; 87086-TC; 87806; 92526; 92611-TC; 93970-TC; 94762-TC; 94799-TC; A4223; A9563; G0378; J0360; J0692; J1650; J1885; J2470; J2543; J3370; J3371; J3475; J3480; J3490; J7030; J7050; J7060; J7070